=== PATIENT | female | born 1950 | race Caucasian/White ===

== ENCOUNTER 2017-11-29 10:02 | Outpatient (CLI) | payer MEDICARE, OTHER, SELFPAY ==
[2017-11-29 13:08] LABS: ALT 28 U/L (12-78); AST 17 U/L (15-37); Albumin 3.9 g/dL (3.4-5.0); Alkaline Phosphatase 84 U/L (46-116); Anion Gap 8.6 mmol/L (3-11); BUN 12 mg/dL (7-18); Bilirubin, Total 1.4 mg/dL (0.2-1.0); CO2 27.4 mmol/L (21.0-32.0); CREATININE 0.53 mg/dL (0.55-1.02); Calcium 9.4 mg/dL (8.5-10.1); Chloride 104 mmol/L (98-107); Glucose 94 mg/dL (70-100); Potassium 4.3 mmol/L (3.5-5.1); Sodium 140 mmol/L (136-145); TSH (W/Ref FT4) 1.35 uIU/mL (0.358-3.74); Total Protein 7.1 g/dL (6.4-8.2)
[2017-11-30 11:23] LABS: Hepatitis C Ab w Rflx HCV PCR Negative (NEGAT)
== END 2017-11-29 10:22 ==
LOC: LBO 10:02 → LOS 11:15
PROVIDERS: PCP Family Medicine; Visit Provider Family Medicine
DX: E03.9 Hypothyroidism, unspecified (principal); R41.3 Other amnesia; Z11.59 Encounter for screening for other viral diseases
CPT/HCPCS: 36415; 80053; 86803; 84443

== ENCOUNTER 2020-04-05 13:05 | Inpatient (IN) | payer OTHER, SELFPAY ==
[2020-04-05] MEDS: Haloperidol 5 MG/ML VIAL IM (14:27)
[2020-04-05] MEDS: MORPHine 1,000 MG in CADD PUMP CASSETTE 1 EACH, Normal Saline 80 ML 0.3 MG SC INF (15:17)
[2020-04-05] MEDS: PROPOFOL 500 MG/50 ML BTL IVPB (15:21)
--- NOTE | 2020-04-05 15:53 | W.PM.HP.N ---
Date of service: 04/05/20 Assessment and Plan Assessment and plan (1) Familial Alzheimer's disease of early onset: Status: Chronic Assessment and plan: Maricarmen's mother age 71 from early onset AD. Maricarmen Downing's son, said his maternal grandmother also young from AD. Likely dominant transmission. 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 reported Maricarmen had to retire at 64 due to memory issues. Currently with severe agitation, paranoia, fear. (3) Hospice care patient: Status: Acute Assessment and plan: admitted this week, of Apr 01 (4) Dementia: Status: Chronic (5) Memory impairment: Status: Acute (6) Agitation requiring sedation protocol: Status: Acute Assessment and plan: Dr Holbrook tired MULTIPLE medications at home with no relief for Maricarmen. Given this family recognizes that palliative sedation is her only current option for comfort. Her Han Mccracken signed the paperwork granting permission to initiate a propofol drip, as did I. (7) Agitation due to dementia: Status: Acute Assessment and plan: Apparently addition of morphine did bring Maricarmen less agitation, so I suspect she has some aspect of uncontrolled pain. Given this, will start her on low dose morphine subcutaneous CADD pump. She is unable to swallow. She pulled off the fentanyl patch that Dr Holbrook initiated this week. (8) Unintentional weight loss: Status: Chronic History of Present Illness History of Present Illness Chief Complaint: Julissas agitation has been impossible to control at home. She is on hospice. Narrative: Dr Holbrook, Maricarmen's PCP, has been following her very closely since June 2019. She has declined dramatically since then, though Dr Holbrook discussed her moderate to advanced dementia with her at Maricarmen's 2018 annual exam. She and her decided in the past not to consult a memory clinic or neurologist, per Dr Holbrook's notes. She was admitted to hospice just this week. She has been suffering with severe agitation. She hits out and acts frightened and angry. She will not let people near her. Dr Holbrook has tried multiple medications, including depakote, mirtazapine, trazodone, haldol, lorazepam and morphine--in case her agitation was due to pain. She had an ok note per her , but this morning became out of control. The hospice nurse called to see if Maricarmen could be admitted for symptom management and palliative sedation. Dr Holbrook has discussed both of these options with Maricarmen's , son and [id number] previously. Her and son, Chang Hatch, arrived soon after Maricarmen did. Han, her , signed the palliative sedation paperwork. I answered their questions; Dr Holbrook had prepared them well for what to expect. Han did express frustration that Maricarmen's [id number] was not allowed to come see Maricarmen in person too; current COVID-19 guidelines allow only 2 designated family members to visit. Review of Systems Unobtainable due to mental condition [facility] Medical History Agitation due to dementia Agitation requiring sedation protocol DUB (dysfunctional uterine bleeding) neg. endo Bx-Dr. 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 Maricarmen's mother age 71 from early-onset AD History of tobacco use Hospice care patient Hyperlipidemia 07/25/12 Hyperlipidemia (07/25/12) Unintentional weight loss Surgical History Appendectomy (~04/2013) Arthroplasty (03/07/14) LEFT THUMB/DR SUMMERS Colonoscopy - [facility] 03/13/13; [facility] (~03/2009) left index finger mass H/O excision of mass 03/22/09 left index finger mass History of appendectomy History of bilateral ligation of fallopian tubes History of bilateral tubal ligation History of excision of mass History of orthopedic surgery 03/22/13 left thumb; resection of trapezium w/interposition arthroplasty History of orthopedic surgery Hx of appendectomy 04/22/13 Ligation of fallopian tube Resection, Phalangeal base (03/07/14) LEFT THUMB Family History Mother , AGE 71 Essential hypertension Alzheimer disease Hypercholesterolemia Father , AGE 81 Essential hypertension Personal history of malignant neoplasm COLON Heart disease Hypercholesterolemia Maternal Grandfather Heart disease Paternal Grandfather Heart disease Bone cancer Maternal Grandmother No problems noted. Paternal Grandmother No problems noted. FAMILY HISTORY Osteoporosis Alzheimer disease Sister No problems noted. Sister No problems noted. Son No problems noted. Brother No problems noted. Social History (Updated 04/05/20 @ 16:15 by Fatemeh Denise MD) Smoking/Tobacco Use Status: Former Tobacco Use Quit Date: 03/22/88 Smoking risk assessment performed?: Yes Alcohol Intake: current Alcohol Intake frequency: a few times a week Drug use: Never Substance use type: does not use Caregiver/Support person: Yes Household members: spouse Housing: house Number of Children: 1 Communication Needs: Hard of Hearing and Corrective Lenses Education Level: high school Do you need help understanding health information?: Always current occupation: retired from [employer] Pets and animals: No Current gender identity: female What is your relationship status?: How often do you talk on the phone with friends or family?: never How often do you get together with friends or relatives?: three or more times per week Panel score (0-1 are the most socially isolated patients): 2 What type of physical activity do you participate in: none and sedentary lifestyle Duration: < 15 minutes/day Frequency: 1-2 times per week Stephany/Jain: Sikhism Special stephany needs: No Agree to transfusion: No Seatbelt use: always Additional Social history: Maricarmen is unable to communicate. Her dementia is too advanced for a conversation. She has had obvious memory/executive function deficits for more than five years. She retired age 64 partially due to inability to do her job; this qualifies her for an EARLY-ONSET AD diagnosis. and son exhausted. Doing their best to support her. Meds Home Medications and Allergies Home Medications Medication Instructions Recorded Confirmed Type calcium carbonate-vitamin D3 1 ea PO BID 06/10/12 11/29/17 History [Caltrate 600 + D Tablet] L. gasseri-B. bifidum-B longum 1 cap PO DAILY 02/28/14 03/07/14 History [Tom' Colon Health Capsule] Prevagen 1 cap PO DAILY 07/30/14 History naproxen sodium [Aleve] 220 mg PO PRN PRN 10/10/15 History multivitamin 1 tab PO DAILY 11/26/17 11/29/17 History levothyroxine 75 mcg capsule 75 mcg PO DAILY #90 cap 03/28/19 Rx mirtazapine 15 mg tablet 15 mg PO QHS #90 tab 12/27/19 Rx polyethylene glycol 3350 17 17 g PO BID PRN #238 g 01/25/20 01/25/20 Rx gram/dose oral powder trazodone 50 mg tablet 25 mg PO .COMPLEX #270 tab 02/13/20 02/13/20 Rx fentanyl 25 mcg/hr transdermal 1 patch TRANSDERMAL Q72H #5 ea MDD 04/03/20 Rx patch 1 acetaminophen 650 mg rectal 650 mg AR Q6H PRN #6 supp 04/04/20 Rx suppository acetaminophen 650 mg rectal 650 mg AR Q6H PRN #6 supp 04/04/20 04/04/20 Rx suppository bisacodyl 10 mg rectal suppository 10 mg AR daily PRN #2 supp 04/04/20 Rx bisacodyl 10 mg rectal suppository 10 mg AR daily PRN #2 supp 04/04/20 04/04/20 Rx haloperidol lactate 2 mg/mL oral 1 mg PO Q6H PRN #15 ml 04/04/20 Rx concentrate haloperidol lactate 2 mg/mL oral 1 mg PO Q6H PRN #15 ml 04/04/20 04/04/20 Rx concentrate hyoscyamine sulfate 0.125 mg 0.125 - 0.25 mg PO Q4H PRN #24 tab 04/04/20 Rx disintegrating tablet hyoscyamine sulfate 0.125 mg 0.125 - 0.25 mg PO Q4H PRN #24 tab 04/04/20 04/04/20 Rx disintegrating tablet lorazepam 1 mg tablet 1 mg PO Q4H PRN #6 tab 04/04/20 Rx lorazepam 1 mg tablet 1 mg PO Q4H PRN #6 tab 04/04/20 04/04/20 Rx morphine concentrate 100 mg/5 mL 5 - 20 mg PO Q1-4H PRN #30 ml MDD 04/04/20 Rx (20 mg/mL) oral solution 5 mL prochlorperazine maleate 10 mg 10 mg PO Q6H PRN #6 tab 04/04/20 Rx tablet prochlorperazine maleate 10 mg 10 mg PO Q6H PRN #6 tab 04/04/20 04/04/20 Rx tablet Allergies Allergy/AdvReac Type Severity Reaction Status Date / Time No Known Allergies Allergy Unverified 11/29/17 09:06 Exam Narrative Exam Narrative: Maricarmen was lying on her back, breathing quietly and evenly. She is sedated. She is quite petite (less than 5 feet tall). Her face appears relaxed. Her eyes are closed. Her face looks relaxed. She has no JVD. No LAD. No neck masses. Lungs are clear but distant. She has a RR of 14-16. Heart regular, no murmur appreciated. HR of 80 Abd Hip bones are prominent, c/w weight loss. soft, non tender, + bs wnl, no masses ext: feet are cool to touch, with +1 pulses in both feet neuro: minimally responsive, sedated skin: no rashes or lesions, some scattered bruising psych: sedated, unable to assess
--- NOTE | 2020-04-05 16:03 | CHAPLAIN ---
Maricarmen is in bed, unresponsive, when I visited. She was admitted from hospice at home where her behaviors were difficult to manage. Her , Han, and son, Chang Hatch, are here with her. I know Chang from his work at [employer]. Han had been caring for Maricarmen at home, but her behaviors escalated. Usually, Marciarmen is a quiet and soft spoken woman, both Han and Chang said, so her outbrusts and behaviors were very much unlike her personality. Chang's Doris has also been helping provide care for Maricarmen at home, however only two family members are allowed to visit here because of COVID precautions. Maricarmen seems comfortable currently.
[2020-04-06 00:01] LABS: COVID-19 RT-PCR UVMMC Result Negative (Negative)
[2020-04-06] MEDS: PROPOFOL 500 MG/50 ML BTL IVPB (09:04)
--- NOTE | 2020-04-06 11:22 | W.PALPGNOTE ---
Date of service: 04/06/20 Time of Service: 11:22 Assessment and Plan Assessment and plan (1) Familial Alzheimer's disease of early onset: Status: Chronic Assessment and plan: Maricarmen's mother age 71 from early onset AD. 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 reported Maricarmen had to retire at 64 due to memory issues. With severe agitation, paranoia, fear and aggression prior to being admitted to the hospital. She appears to be peaceful and comfortable at this point. Her son, Chang verbalizes that he is pleased with the care that she is receiving. He is grateful to be present in the hospital during the pandemic, he wishes his could be here too. Continue propofol and morphine for comfort, titrate as needed. (3) Hospice care patient: Status: Acute Assessment and plan: admitted this week, of Apr 01 (4) Dementia: Status: Chronic Assessment and plan: As above. (5) Memory impairment: Status: Acute (6) Agitation requiring sedation protocol: Status: Acute Assessment and plan: As noted in H&P, Dr Holbrook tired MULTIPLE medications at home with no relief for Maricarmen. Her family feels that she is very comfortable and her dignity is protected with the current course of treatment. Continue propofol and MS. (7) Agitation due to dementia: Status: Acute Assessment and plan: As above. (8) Unintentional weight loss: Status: Chronic Subjective Subjective Interval history since last seen: Maricarmen's son, Chang, is present. He reports that she appears to be very comfortable, he denies seeing any signs of distress. Her propofol is at 15 mg/hr. The morphine is at 3 mg/hr. She is resting comfortably in bed. Nursing reports that she reacted to being repositioned, so they are going up on her drip. Exam Narrative Exam Narrative: General: resting in bed, appears comfortable, face is soft and smooth, no furrowed brows or grimacing. HEENT: asleep with mouth open, mucous membranes dry. Cardiovascular: heart sounds regular. Respiratory: respirations appear even and unlabored, no apnea noted. GI: soft. Extremities: no edema. Objective Laboratory Results - last 24 hr 04/05/20 16:30 SARS-CoV-2 (PCR) Negative Nasopharyn COVID-19 PCR Not Applicable Ref Test Perform Site [facility]
--- NOTE | 2020-04-06 13:38 | CMPROGNOTE_ITS ---
Care Management Progress Note Maricarmen is admitted to [facility] for palliative sedation and symptom management, she was admitted to hospice just this week. She has been suffering with severe agitation. She hits out and acts frightened and angry. She will not let people near her. Dr Holbrook tried multiple medications, including depakote, mirtazapine, trazodone, haldol, lorazepam and morphine--in case her agitation was due to pain. Maricarmen's agitation has been impossible to control at home. She was started on a low dose morphine subcutaneous CADD pump. She is unable to swallow. She appears to be peaceful and comfortable at this point. Her son, Chang verbalizes that he is pleased with the care that she is receiving. He is grateful to be present in the hospital during the pandemic, he wishes his could be here too. Her family feels that she is very comfortable and her dignity is protected with the current course of treatment. Her approved visitors are her , Han and son, Chang.
--- NOTE | 2020-04-06 14:17 | PHA.REVIEW ---
Pharmacy Admission Review - Admission Clinical Review (Last Reviewed 04/05/20 @ 16:12 by Fatemeh Denise MD) Agitation requiring sedation protocol (Acute) Agitation due to dementia (Acute) Hospice care patient (Acute) Memory impairment (Acute 07/30/14) No Known Allergies Allergy (Unverified 11/29/17 09:06) Weight 44.5 kg - Comments Comments/Follow Ups: pt here for hospice. on palliative propofol for combative agitation. pt seems comfortable per CM notes - Comments Comments/Follow Ups: follow for any med needs
[2020-04-06] MEDS: PROPOFOL 500 MG/50 ML BTL 6 MG IVPB (17:46)
[2020-04-07] MEDS: PROPOFOL 500 MG/50 ML BTL 6 MG IVPB ×4 (00:43→22:07)
--- NOTE | 2020-04-07 13:30 | PDOC.CMPRO ---
Care Management Progress Note Maricarmen is admitted to [facility] for palliative sedation and symptom management, she was admitted to hospice just this week. She has been suffering with severe agitation. She hits out and acts frightened and angry. She will not let people near her. Dr Holbrook tried multiple medications, including depakote, mirtazapine, trazodone, haldol, lorazepam and morphine--in case her agitation was due to pain. Maricarmen's agitation has been impossible to control at home. She was started on a low dose morphine subcutaneous CADD pump. She is unable to swallow. She appears to be peaceful and comfortable at this point. Her son, Chang verbalizes that he is pleased with the care that she is receiving. He is grateful to be present in the hospital during the pandemic, he wishes his could be here too. Her family feels that she is very comfortable and her dignity is protected with the current course of treatment. Her approved visitors are her , Han and son, Chang.
--- NOTE | 2020-04-07 16:04 | W.PM.PROGNOT ---
Date of Service Date of service: 04/07/20 Time of Service: 12:30 Assessment and Plan Assessment and plan (1) Familial Alzheimer's disease of early onset: Status: Chronic Assessment and plan: Maricarmen's mother age 71 from early onset AD. Maricarmen was in her early sixties when she started having symptoms. 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 reported Maricarmen had to retire at 64 due to memory issues. With severe agitation, paranoia, fear and aggression prior to being admitted to the hospital. She appears to be peaceful and comfortable at this point. Her son, Chang verbalizes that he is pleased with the care that she is receiving. He is grateful to be present in the hospital during the pandemic, he wishes his could be here too. Continue propofol and morphine for comfort, titrate as needed. (3) Hospice care patient: Status: Acute Assessment and plan: Admitted the week of Apr 01, 2020. Continue symptom management. (4) Dementia: Status: Chronic Assessment and plan: As above. (5) Memory impairment: Status: Acute (6) Agitation requiring sedation protocol: Status: Acute Assessment and plan: As noted in H&P, Dr Holbrook tired MULTIPLE medications at home with no relief for Maricarmen. Her family feels that she is very comfortable and her dignity is protected with the current course of treatment. Continue propofol and MS. (7) Agitation due to dementia: Status: Acute Assessment and plan: As above. No agitation at this point. (8) Unintentional weight loss: Status: Chronic Subjective Subjective Interval history since last seen: Maricarmen remains on Palliative sedation. Her son, Chang was present with her. He believes Maricarmen is comfortable. She appears to be resting comfortably in bed. Chang denies seen any signs of discomfort, no furrowed brows, grimacing or moaning. She is experiencing brief periods of apnea. The propofol is at 6 ml/hr. Exam Narrative Exam Narrative: General: resting in bed with eyes closed. Completely unresponsive. Appears comfortable, face is soft and smooth, no furrowed brows or grimacing. HEENT: asleep with mouth open, mucous membranes dry. Cardiovascular: heart sounds regular. Respiratory: respirations unlabored, periods of apnea noted. GI: soft. Extremities: no edema.
[2020-04-08] MEDS: PROPOFOL 500 MG/50 ML BTL 6 MG IVPB ×3 (04:23→16:06)
--- NOTE | 2020-04-08 08:06 | CMPROGNOTE_ITS ---
Care Management Progress Note Maricarmen is admitted to [facility] for palliative sedation and symptom management. Maricarmen's agitation has been impossible to control at home. She was started on a low dose morphine subcutaneous CADD pump. She is unable to swallow. She appears to be peaceful and comfortable at this point. Her approved visitors are her , Han and son, Chang.
--- NOTE | 2020-04-08 08:08 | W.PM.PROGNOT ---
Date of Service Date of service: 04/08/20 Time of Service: 08:08 Assessment and Plan Assessment and plan (1) Agitation requiring sedation protocol: Status: Acute (2) Agitation due to dementia: Status: Acute (3) Unintentional weight loss: Status: Chronic (4) Familial Alzheimer's disease of early onset: Status: Chronic (5) Hospice care patient: Status: Acute Assessment and plan: Prior to doing regular care of pt, please increase pain medication and poprophol to maintain pt comfort. Overall Maricarmen is doing very well. Family can finally breathe themselves as they have been caring for her in a very agitated state for months. We will continue to have visual as she relaxes and is comfortable. I would expect that within 3 to 4 days Maricarmen may peacefully pass. I have advised nursing to be certain that she has plenty of pain medication on board since it would be difficult to tell if she was in pain due to the propofol Subjective Subjective Interval history since last seen: Family is very happy with how peaceful Maricarmen has been. states that each day as this goes on he realizes how agitated she was and how wonderful it is to see her peaceful. Occasionally she does grimace. She no longer reacts when he holds her hand. Exam Narrative Exam Narrative: She continues to have a furrowed forehead. Her breathing is rhythmic although I have heard from staff that at times it is deeper or slower. Lungs little air movement, heart is not tachycardic
--- NOTE | 2020-04-08 16:31 | CHAPLAIN ---
Maricarmen's Han, and son Chang have been taking turns staying with Maricarmen. Han spends the night. They both have said that they are relieved to see her peaceful as she has been agitated and aggressive for months. They agree that she would want this as well, for herself or for them if she were making the decisions. I had long conversation with Han on 04/06 in the late evening. He has been caring for Maricarmen for five years and clearly is devoted to her.
[2020-04-09] MEDS: PROPOFOL 500 MG/50 ML BTL 6 MG IVPB ×3 (07:01→22:46)
--- NOTE | 2020-04-09 07:08 | W.PM.PROGNOT ---
Date of Service Date of service: 04/09/20 Time of Service: 07:08 Assessment and Plan Assessment and plan (1) Agitation due to dementia: Status: Acute (2) Agitation requiring sedation protocol: Status: Acute Assessment and plan: Pt presently comfortable. Family has made no arrangements for after her . I spoke about options for cremation. I would like Care Management to review these with the family. I also spoke with Nurse Engine Generator Assembler about getting [facility] Management involved Subjective Subjective Interval history since last seen: Resting comfortably. SOme apnea. Montrell at bedside. Exam Narrative Exam Narrative: Lying comfortably, no cyanosis, some apnea. HR - regular, murmur present
--- NOTE | 2020-04-09 15:03 | CHAPLAIN ---
I checked in with Maricarmen's Han, and son, Chang today. Maricarmen continues to rest comfortably and is not responsive. Han or Chang or both are always with Maricarmen. Today they are working on cremation arrangements and said that Elderly Sitter, Yesi Garay had been very helpful explaining options to them.
--- NOTE | 2020-04-09 19:34 | CMPROGNOTE_ITS ---
- If Service Date Differs Date of service: 04/09/20 Time of Service: 19:34 Care Management Progress Note S/O: Maricarmen was resting comfortably each time CM visited with her and her family. She remains on palliative sedation, and per report she is expected to pass peacefully within 3-4 days. CM met with her , Han, and son, Chang today a few times to discuss options for final arrangements. After going over the options, they chose the [facility], in [place], [place]. CM offered the patient computer for Han to use in order to complete the paperwork online, as this is the current process due to Covid 19. They were very pleasant in conversation, and are pleased with the care and experience here at [facility]. CM will continue to follow. A: Maricarmen is a 70 year old female admitted to [facility] for Hospice symptom management, palliative sedation. P: Per report, Maricarmen is expected to pass during this admission, likely within a few days. She is comfortable, and her and son are by her side continuously. The family has chosen the [facility] in [place], [place]. Han has completed the online paperwork, so they are expecting our call once she passes. CM will continue to support Maricarmen and her family during this difficult time.
[2020-04-10] MEDS: PROPOFOL 500 MG/50 ML BTL 6 MG IVPB ×2 (04:16→12:34)
--- NOTE | 2020-04-10 10:57 | W.PM.PROGNOT ---
Date of Service Date of service: 04/10/20 Time of Service: 10:57 Assessment and Plan Assessment and plan (1) Familial Alzheimer's disease of early onset: Status: Chronic Assessment and plan: Maricarmen's mother age 71 from early onset AD. Maricarmen was in her early sixties when she started having symptoms. 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 reported Maricarmen had to retire at 64 due to memory issues. With severe agitation, paranoia, fear and aggression prior to being admitted to the hospital. She appears to be peaceful and comfortable at this point. Her son, Chang verbalizes that he is pleased with the care that she is receiving. He is grateful to be present in the hospital during the pandemic, he wishes his could be here too. Continue propofol and morphine for comfort, titrate as needed. (3) Hospice care patient: Status: Acute Assessment and plan: Admitted the week of Apr 01, 2020. Continue symptom management. Family has worked out cremation plans with care management. (4) Dementia: Status: Chronic Assessment and plan: As above. (5) Agitation requiring sedation protocol: Status: Acute Assessment and plan: As noted in H&P, Dr Holbrook tired MULTIPLE medications at home with no relief for Maricarmen. Her family feels that she is very comfortable and her dignity is protected with the current course of treatment. Continue propofol and MS. (6) Agitation due to dementia: Status: Acute Assessment and plan: As above. No agitation at this point. Subjective Subjective Interval history since last seen: Maricarmen's and son are present. They believe she is comfortable, no grimacing, moaning or furrowed brows. She is experiencing periods of apnea. Her respiratory rate is 10 at present. Her family denies any concerns, they are very grateful for the care that she has received at [facility]. The propofol drip is at 6, The morphine is at 4mg/hr. She received one bolus today when she was receiving personal care. Exam Narrative Exam Narrative: General: resting in bed with eyes closed. Completely unresponsive. Appears comfortable, face is soft and smooth, no furrowed brows or grimacing. No moaning. HEENT: asleep with mouth open, mucous membranes dry. Cardiovascular: heart sounds regular. Respiratory: respirations unlabored, periods of apnea noted. RR 10. GI: soft. Extremities: no edema.
--- NOTE | 2020-04-10 15:06 | CHAPLAIN ---
Both Maricarmen's , Han, and son, Chang, were with her when I visited this morning. Maricarmen is on palliative sedation. She remains unresponsive and seems to be comfortable. Han remarked how relaxed her face looks. Han and Chang continue to stay with Maricarmen, and spell each other at times. Han spends the night here. They are appreciative of Dr. Holbrook's visits and the care Maricarmen is receiving from staff.
--- NOTE | 2020-04-10 16:35 | CMPROGNOTE_ITS ---
- If Service Date Differs Date of service: 04/10/20 Time of Service: 16:36 Care Management Progress Note S/O: Maricarmen remains at [facility] for Palliative sedation. She appears comfortable. Her and son are by her side. CM visited with them today as they shared memories and expressed their gratitude to staff at [facility]. They are both so glad that they are able to be with her, especially due to the Pandemic. CM will continue to follow. A: Maricarmen is a 70 year old female admitted to [facility] for Hospice symptom management, palliative sedation. P: Per report, Maricarmen is expected to pass during this admission, likely within a few days. She is comfortable, and her and son are by her side continuo usly. The family has chosen the [facility] [place] in [place], [place]. Han has completed the online paperwork, so they are expecting our call once she passes. Their contact phone number is [phone]. CM will continue to support Maricarmen and her family during this difficult time.
--- NOTE | 2020-04-10 16:35 | PDOC.CMPRO ---
- If Service Date Differs Date of service: 04/10/20 Time of Service: 16:36 Care Management Progress Note S/O: Maricarmen remains at [facility] for Palliative sedation. She appears comfortable. Her and son are by her side. CM visited with them today as they shared memories and expressed their gratitude to staff at [facility]. They are both so glad that they are able to be with her, especially due to the Pandemic. CM will continue to follow. A: Maricarmen is a 70 year old female admitted to [facility] for Hospice symptom management, palliative sedation. P: Per report, Maricarmen is expected to pass during this admission, likely within a few days. She is comfortable, and her and son are by her side continuously. The family has chosen the [facility] [place] in [place], [place]. Han has completed the online paperwork, so they are expecting our call once she passes. Their contact phone number is [phone]. CM will continue to support Maricarmen and her family during this difficult time.
[2020-04-10] MEDS: PROPOFOL 500 MG/50 ML BTL 7 MG IVPB (19:40)
[2020-04-11] MEDS: PROPOFOL 500 MG/50 ML BTL 7 MG IVPB ×2 (02:38→08:34)
--- NOTE | 2020-04-11 08:10 | W.PM.PROGNOT ---
Date of Service Date of service: 04/11/20 Time of Service: 08:10 Assessment and Plan Assessment and plan (1) Agitation due to dementia: Status: Acute (2) Agitation requiring sedation protocol: Status: Acute Assessment and plan: Maricarmen seems to be having apneic episodes. This combined with the cyanosis tells me that it will not be long before she does . Her knows this. We talked about the loneliness and the pain that he is going to have when he leaves the hospital. He has been by her bedside the last 6 nights. Is very happy that the cremation plans are in place. He had wonderful things to say about hospice. Family seems to be coping especially after 5+ years of living with Maricarmen developing worsening dementia by the day. Subjective Subjective Interval history since last seen: I did stop by to see Maricarmen yesterday. Son related that she was fighting getting mouth care. Her nurse and I were in the room when he told her skills. ARNEL Cormier did increase her propofol drip. Montrell is very content stating that Maricarmen looks 10 years younger just being relaxed. He is very pleased with her excellent care and also the good care the people have shown the family. They have made arrangements for cremation. They were very thankful that [employer] business manager was in charge of this Exam Narrative Exam Narrative: Maricarmen is lying in bed. Her mouth is open. She is breathing about 5 times per minute. Her feet are showing signs of mottling. I do not see mottling around her mouth. Nursing states that she was having mottling of her thighs
[2020-04-11] MEDS: PROPOFOL 500 MG/50 ML BTL 8 MG IVPB ×3 (13:50→23:39)
--- NOTE | 2020-04-11 13:58 | NUR.NOTE ---
Addendum entered and electronically signed by Sheila Gomes 04/11/20 14:00: 04/11/[address] Denise regarding increasing propofol per order per patient presentation, MD in agreement. Original Note: Nursing Note: 04/11/20 1350- Pt biting on mouthcare swab, pt rr 16, family notes increased WOB. Spoke with family about tirating propofol up for comfort per order, family in agreement with plan of care.
--- NOTE | 2020-04-11 16:39 | CHAPLAIN ---
Maricarmen remains unresponsive but appears to be comfortable. Her , Han, and son, Chang are with her. They recently made arrangements with the [facility] [place] to care for Maricarmen's body after she dies, and Han said he felt good about making those decisions ahead of time.
--- NOTE | 2020-04-11 20:05 | PDOC.CMPRO ---
- If Service Date Differs Date of service: 04/11/20 Time of Service: 20:05 Care Management Progress Note S/O: Maricarmen remains at [facility] on Palliative Sedation at this time. Her and son are by her side. They have had visits from Kayla, Oyster Grader, all three Palliative providers, and many nurses taking care of her throughout this stay. They are very pleased with the care Maricarmen is receiving, as well as how well they are being cared for during this time. CM will continue to follow. A: Maricarmen is a 70 year old female admitted to [facility] for Hospice symptom management, palliative sedation. P: Per report, Maricarmen is expected to pass during this admission, likely within a few days. She is comfortable, and her and son are by her side continuously. The family has chosen the [facility] [place] in [place], [place]. Han has completed the online paperwork, so they are expecting our call once she passes. Their contact phone number is [phone]. CM will continue to support Maricarmen and her family during this difficult time.
[2020-04-12] MEDS: PROPOFOL 500 MG/50 ML BTL 8 MG IVPB ×5 (04:42→19:44)
--- NOTE | 2020-04-12 14:29 | CHAPLAIN ---
Sean respirations are less often now, and Han said that has been like that through the night and this morning. She continues to appear comfortable, and Han is pleased with her care. Sean is receiving palliative sedation. She has had early onset Alzheimer's for the past five years and had become agitated and aggressive with Han at home. Han, or Maricarmen's son, Chang, have been with her constantly since she was admitted. Han has been spending the nights. They have made pre-arrangements with the [facility] [place], and Ahn said he is relieved to have that taken care of.
[2020-04-12] MEDS: Normal Saline Flush 10 ML SYR IVP (15:46)
[2020-04-12] MEDS: Glycopyrrolate 0.2 MG/1 ML VIAL IVP (15:47)
--- NOTE | 2020-04-12 18:41 | PDOC.CMPRO ---
- If Service Date Differs Date of service: 04/12/20 Time of Service: 18:41 Care Management Progress Note S/O: Maricarmen was resting comfortably when CM visiting with her family. She remains on Palliative Sedation at [facility] for end of life care. CM assisted her and son with cremation details, which they are appreciative of. Today they spoke of fond memories and expressed how grateful they are to have this time together, stating how they don't remember the last time they have spent so much time talking. They are very appreciative of the care Maricarmen is receiving and of how attentive staff are to their needs. CM will continue to follow. A: Maricarmen is a 70 year old female admitted to [facility] for Hospice symptom management, palliative sedation. P: Per report, Maricarmen is expected to pass during this admission, likely within a few days. She is comfortable, and her and son are by her side continuously. The family has chosen the [facility] [place] in [place], [place]. Han has completed the online paperwork, so they are expecting our call once she passes. Their contact phone number is [phone]. CM will continue to support Maricarmen and her family during this difficult time.
[2020-04-13] MEDS: PROPOFOL 500 MG/50 ML BTL 8 MG IVPB ×2 (01:22→06:27)
[2020-04-13] MEDS: Normal Saline Flush 10 ML SYR IVP (01:23)
[2020-04-13] MEDS: PROPOFOL 500 MG/50 ML BTL 9 MG IVPB ×3 (11:19→21:04)
--- NOTE | 2020-04-13 11:30 | PDOC.CMPRO ---
- If Service Date Differs Date of service: 04/13/20 Time of Service: 11:30 Care Management Progress Note S/O: Maricarmen was resting comfortably when CM visited. Her and son are in constant attendance and are veryappreciative of all care given to Maricarmen.She remains on Palliative Sedation at [facility] for end of life care. A: Maricarmen is a 70 year old female admitted to [facility] for Hospice symptom management, palliative sedation. P: Per report, Maricarmen is expected to pass during this admission, likely within a few days. She is comfortable, and her and son are by her side continuously. The family has chosen the [facility] [place] in [place], [place]. Han has completed the online paperwork, so they are expecting our call once she passes. Their contact phone number is [phone]. will continue to support Maricarmen and her family during this difficult time.
--- NOTE | 2020-04-13 11:42 | NUR.NOTE ---
Nursing Note: This nurse changed t he propofol line, and administered the medication to the patient for Gail Ta LPN
--- NOTE | 2020-04-13 11:49 | PGE_ITS ---
Date of Service Date of service: 04/13/20 Time of Service: 10:49 Assessment and Plan Assessment and plan (1) Agitation requiring sedation protocol: Status: Acute Assessment and plan: continues on propofol, with recent increase to 9 ml/hr (90 mg/hr) she did have some pain this morning too when nurses had to restart her IV remains on morphine scc pump (2) Familial Alzheimer's disease of early onset: Status: Chronic Assessment and plan: Maricarmen is dying from same. Discussed genetics of this disease with Chang. He is not sure he wants to explore this any further. Discussed lifestyle changes he could implement to lower his risk. (3) Hospice care patient: Status: Acute Assessment and plan: Maricarmen remains on symptom management (4) Dying care: Status: Acute Assessment and plan: Asked nurses if they could provide regular mouth care son Chang was worried her lips looked more chapped they do have swabs by the bedside she looked very comfortable throughout my visit the nurses hung a new bottle of propofol recently will likely need further titration today Subjective Subjective Patient reports: still having pain and no bowel movement; denies tolerating a regular diet Interval history since last seen: The nurses reported to me that Maricarmen's IV infiltrated this am. She needed a new line started and she moaned/groaned when they did so. She received a bolus of her SC morphine and they titrated her propofol up to 9 ml/hr. Her Han continues to spend every night in a cot by her bed. Her son Thomas sawant has been present at all of my visits; he does go home to sleep. She has had no intake for more than a week. She still is making 10-20 ccs/ urine per hour. It is quite dark in color. Her face looks more sunken today. She has been receiving mouth care from [facility] and from her son. We talked about grief and how that might feel for Han and Chang after Maricarmen dies. They are good support for each other. They are making plans to exercise together regularly afterwards. We also talked about the genetics of early-onset AD. Maricarmen is the third generation to have this disease. We discussed ways Chang can limit his risks, including eating healthfully, exercising regularly, limiting alcohol and avoiding smoking. All of these behaviors help prevent multiple illnesses, I reminded them. She is not having apnea today, though she did yesterday. Her feet and hands are still warm. Dr Holbrook made a social visit last night. The family very much appreciated this. Exam Narrative Exam Narrative: Maricarmen was lying on her back, breathing quietly and evenly. She is sedated. She is quite petite (less than 5 feet tall). Her face appears relaxed. Her eyes are closed. Her cheeks are newly sunken appearing. She does have ptosis of both eyelids. She has no JVD. No LAD. No neck masses. Lungs are clear but distant. She has a RR of 10-14. Heart regular, no murmur appreciated. HR of 72 Abd Hip bones are prominent, c/w weight loss. soft, non tender, + bs wnl, no masses ext: feet are warm to touch, with +1 pulses in both feet neuro: minimally responsive, sedated skin: no rashes or lesions, some scattered bruising psych: sedated, unable to assess
--- NOTE | 2020-04-13 12:04 | PGE_ITS ---
Date of Service Date of service: 04/12/20 Time of Service: 12:04 Assessment and Plan Assessment and plan (1) Dying care: Status: Acute Assessment and plan: [facility] nurses and [employer] LIEUTENANT are attending to Maricarmen very respectfully and attentively. She is clean and comfortable. She looks very well cared for. Family very happy with the care she is receiving. Discussed the difficulty in determining exactly when a person is going to . They have told her their good-byes. Explained that she is still working out something, maybe remembering all her happy times. No distress noted. And for this her family are grateful, as she had been suffering prior to admission. 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 She and her ate a healthy diet, exercised regularly (until she could not do so due to cognitive impairment, up until about 2 years ago). Her mother and maternal grandmother both about age 70 from same. Likely genetic component. (4) Hospice care patient: Status: Acute Assessment and plan: Remains on symptom management. I told Han and Chang that I was on this weekend and would see them Sat and Wednesday. Beatrice Holbrook MD will be on again Wednesday. THey are comfortable with the plan. Subjective Subjective Patient reports: no new complaints and no bowel movement; denies still having pain and tolerating a regular diet Interval history since last seen: I met with Maricarmen, his Han and son Chang at her bedside. She remains minimally responsive. She is actively dying. We discussed the mysteries of each person's process. Both Han and Chang have told her they will be ok without her, it's ok if she goes, they weill take care of each other. Nonetheless, she continues to live. She has been 7 days without food or drink now. She is a very petite woman to begin with , with no extra body weight. Everyone is surprised she has lived this long. She is not agitated. She is not uncomfortable. She does not appear to be in any pain or discomfort. She is being well tended. She is accompanied by family who love and cherish her dearly. Exam Narrative Exam Narrative: Maricarmen was lying on her back, breathing quietly and evenly. She is sedated. Her face appears relaxed. Her eyes are closed. She does have ptosis of both eyelids. She has no JVD. No LAD. No neck masses. Lungs are clear but distant. She has a RR of 10-14. No increased work of breathing. Two brief episodes of apnea noted. Heart regular, no murmur appreciated. HR of 84. Some ectopy. No pauses. Abd Hip bones are prominent, c/w weight loss. soft, non tender, + bs wnl, no masses ext: feet are warm to touch, with +1 pulses in both feet neuro: minimally responsive, sedated skin: no rashes or lesions, some scattered bruising psych: sedated, unable to assess
[2020-04-14] MEDS: PROPOFOL 500 MG/50 ML BTL 9 MG IVPB ×2 (03:01→09:32)
--- NOTE | 2020-04-14 09:59 | PDOC.CMPRO ---
- If Service Date Differs Date of service: 04/14/20 Time of Service: 09:59 Care Management Progress Note Maricarmen was resting comfortably when CM visited this morning. She peacefully at 12:49 pm with Her and son at her side. Kayla Silverman, hospital perinatal breastfeeding assistant, came to spend time with the family and CM assisted with gathering information requested by the family from [facility] [place] in [place] where final arrangements will take place.
--- NOTE | 2020-04-14 10:04 | PGE_ITS ---
Date of Service Date of service: 04/14/20 Time of Service: 09:04 Assessment and Plan Assessment and plan (1) Dying care: Status: Acute Assessment and plan: [facility] nurses and METAL FENCE ERECTOR are attending to Maricarmen very respectfully and attentively. She is clean and comfortable. She looks very well cared for. Family very happy with the care she is receiving. Discussed the difficulty in determining exactly when a person is going to . They have told her their good-byes. Only present morning of 04/14. He was teary. He's tiring. No distress noted. And for this her family are grateful, as she had been suffering prior to admission. 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 She and her ate a healthy diet, exercised regularly (until she could not do so due to cognitive impairment, up until about 2 years ago). Her mother and maternal grandmother both about age 70 from same. Likely genetic component. She required sedation upon admission due to high degree of behavioral agitation and distress. (4) Hospice care patient: Status: Acute Assessment and plan: Remains on symptom management. Beatrice Holbrook MD will be on again Wednesday. If she dies 04/14, I will do certificate and note. If she dies 04/15, Dr Holbrook will do. Life expectancy measured in hours to days--latter unlikely. Subjective Subjective Patient reports: pain is less Interval history since last seen: Maricarmen now has a grayish cast to her skin. She had several episodes of cyanosis documented by the nurses; her fingers and toes and LE looked blue and felt cool. Her extremities are warm and pink however at the time of my exam. Her face looks more sunken. Only her , Han was present this am. He is getting tired; she's been in the hospital for 9 days now. Her primary nurse reported NO UOP over the last 12 hrs. She has had nothing to eat or drink per mouth since she was admitted. The nurses and LNAs are doing regular mouth care. I explained to Han that if Maricarmen lives until tomorrow, Dr HOLBROOK will be taking over her care. Her IV has remained intact. She has had no grimace, furrow or moan. Appears sedated and comfortable. Exam Narrative Exam Narrative: Maricarmen was lying on her back, breathing quietly and shallowly. She did not have apneic spells during my visit though her reports she has them regularly. She is sedated. Her face appears relaxed. Her cheeks are sunken. Her skin looks mohan. Her eyes have ptosis of both eyelids. She has some mild JVD. No LAD. No neck masses. Lungs are clear but distant. She has a RR of 10-14. No increased work of breathing. She is breathing very shallowly. No air exchange heard in inferior lobes. Heart regular, soft murmur or rub appreciated. HR of 80. Some ectopy. No pauses. Abd Hip bones are prominent, c/w weight loss. Abdomen scaphoid. soft, no masses ext: feet and hands are warm to touch, with +1 pulses in both feet neuro: unresponsive, sedated skin: no rashes or lesions psych: sedated, unable to assess Mouth: lips slightly chapped, MM are dry
--- NOTE | 2020-04-14 15:41 | EXPE_ITS ---
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
--- NOTE | 2020-04-15 15:47 | CHAPLAIN ---
I was called in on 04/14 shortly after Maricarmen . Han and Chang were with her all day and said that her breathing has been very shallow, and eventually she took two louder breaths, and then stopped breathing. Han had made arrangements with the [employer] [facility] and they were going to be called when Chang and Han were ready to leave. Han said he and Chang had made plan for what to do with Julissas ashes, and this seemed to bring him comfort. He and Chang both expressed their gratitude for the care that Maricarmen received here on palliative sedation. Han said she had not been this peaceful in 5 years and he was relieved that she was no longer in physical or emotional pain. I said a prayer with Han and Chang, and gave Chang prayer amor, that matched Maricarmen's, for his and daughter.
== END 2020-04-14 12:53 | disposition expired | DRG 57 ==
PROVIDERS: Admitting Provider Family Medicine; PCP Family Medicine; Visit Provider Family Medicine
DX: G30.0 Alzheimer's disease with early onset (principal); F02.81 Dementia in other diseases classified elsewhere, unspecified severity, with behavioral disturbance; Z51.5 Encounter for palliative care; R45.1 Restlessness and agitation; R63.4 Abnormal weight loss; E78.5 Hyperlipidemia, unspecified
CPT/HCPCS: 99223; 99232; 99233; 99239; NC; U0003; J1630